=== PATIENT | female | born 1985 | race Two or more races ===

== ENCOUNTER 2016-11-04 19:03 | Emergency (ER) | payer MEDICAID ==
[~2016-11-04] VITALS: Ht 165.1 cm; Wt 63.6 kg
[~2016-11-04 19:03] MED LIST: LORTAB ELIXIR480 ML PO; MOTRIN600 MG PO; NO HOME MEDICATION XX; NORCO 5/325 TAB1 TAB PO; PRENATAL1 TAB; VICODIN 5/500 T1 TAB PO; ZANTAC150 M1 PO; ZOFRAN4 M2 PO
[2016-11-04] MEDS ORDERED: ZOFRAN4 M2 PO (20:55)
[2016-11-04] MEDS ORDERED: ZOFRAN ODT4 MG PO (22:28)
== END 2016-11-04 22:40 ==
LOC: EDMED 19:03
DX: O21.9 Vomiting of pregnancy, unspecified (principal); Z3A.11 11 weeks gestation of pregnancy; Z76.0 Encounter for issue of repeat prescription